=== PATIENT | female | born 1960 | race Native Hawaiian/Other Pacific Islander ===

== ENCOUNTER 2016-09-23 14:40 | Observation (INO) | payer OTHER ==
[2016-09-23] MEDS ORDERED: Enalaprilat 2.5 MG/2 ML IV ONE (15:18)
[2016-09-23] MEDS ORDERED: Enalaprilat 2.5 MG/2 ML ONE (15:25)
--- NOTE | 2016-09-23 15:45 | C.PDOC ---
History Of Present Illness Pt went to clinic today for a routine appointment and discovered that her BP is very high. She was then referred to the ED. Pt is asymptomatic. She has been diagnosed with hypertension in [facility] but is not on any medications and has not seen a doctor in more than a year. Time Seen by Provider: 09/23/16 15:01 Chief Complaint (Nursing): High Blood Pressure History Per: Patient, Family Onset/Duration Of Symptoms: Unknown Current Symptoms Are (Timing): Still Present Quality Of Symptoms: Asymptomatic Severity: Severe Exacerbating Factor(s): Pos: None Additional History Per: Prior Records Past Medical History Reviewed: Historical Data, Nursing Documentation, Vital Signs Vital Signs: Last Vital Signs Temp 98.2 F 09/23/16 14:58 Pulse 98 H 09/23/16 19:53 Resp 23 09/23/16 19:53 BP 203/100 H 09/23/16 19:53 Pulse Ox 99 09/23/16 19:53 - Medical History PMH: HTN Surgical History: Family History: States: Unknown Family Hx - Social History Hx Tobacco Use: No Hx Alcohol Use: No Hx Substance Use: No Review Of Systems Except As Marked, All Systems Reviewed And Found Negative. Constitutional: Negative for: Fever, Weakness Eyes: Negative for: Vision Change Cardiovascular: Negative for: Chest Pain Respiratory: Negative for: Shortness of Breath Gastrointestinal: Negative for: Vomiting, Abdominal Pain Musculoskeletal: Negative for: Neck Pain, Back Pain Skin: Negative for: Rash Neurological: Negative for: Weakness, Numbness, Incoordination, Change in Speech , Confusion, Seizures, Altered Mental Status, Headache, Dizziness Physical Exam - Physical Exam Appears: Non-toxic, No Acute Distress Skin: Normal Color, Warm, Dry, No Rash Head: Atraumatic, Normacephalic Eye(s): bilateral: PERRL, EOMI Neck: Normal ROM, Supple Cardiovascular: Rhythm Regular Respiratory: Normal Breath Sounds, No Accessory Muscle Use Gastrointestinal/Abdominal: Soft, No Tenderness Back: No CVA Tenderness Extremity: Normal ROM, No Pedal Edema, No Calf Tenderness Neurological/Psych: Oriented x3, Normal Speech, Normal Cognition, Normal Motor, Normal Sensation ED Course And Treatment - Laboratory Results Result Diagrams: 09/23/16 15:47 09/23/16 15:47 Interpretation Of Abnormal: Likely UTI. ECG: Interpreted By Me, Viewed By Me ECG Rhythm: Sinus Tachycardia, Nonspecific Changes Rate From EC O2 Sat by Pulse Oximetry: 100 Pulse Ox Interpretation: Normal Progress - Interventions Interventions:: Observation - Medications Administered Oral: Antihypertensive, Diuretic Intravenous: Antihypertensive - Data Reviewed Data Reviewed: Lab, EKG, Old records - Patient Status Patient status: Partially improved - Critical Care Citical Care: Excluding Proc Time Critical Care Time: 60 minutes - Continuity of Care Discussed patient case with:: Patient, Family-HIPPA compliant, ED Nurse, On- call PMD-pt unassigned Disposition Discussed With DrProsper: Kal Brewer Comment: He accepted pt on hospitalist service. Doctor Will See Patient In The: Hospital Counseled Patient/Family Regarding: Studies Performed, Diagnosis - Disposition Disposition: HOSPITALIZED Disposition Time: 20:27 Condition: GUARDED - Clinical Impression Clinical Impression: Hypertensive urgency
[2016-09-23 15:57] LABS: BASO # 0.1 K/uL (0.0-0.2); BASO % 0.7 % (0.0-2.0); EOS # 0.1 K/uL (0.0-0.7); EOS % 0.5 % (0.0-4.0); HEMATOCRIT 40.5 % (34.0-47.0); LYMPH # 2.7 K/uL (1.0-4.3); LYMPH % 23.2 % (20.0-40.0); MEAN CELL VOLUME 89.2 fL (81.0-99.0); MEAN CORPUSCULAR HEMOGLOBIN 29.5 pg (27.0-31.0); MEAN CORPUSCULAR HGB CONC 33.1 g/dL (33.0-37.0); MEAN PLATELET VOLUME 9.1 fL (7.2-11.7); MONO # 0.5 K/uL (0.0-0.8); MONO % 4.5 % (0.0-10.0); RED CELL DISTRIBUTION WIDTH 13.6 % (11.5-14.5); WHITE BLOOD COUNT 11.6 K/uL (4.8-10.8)
[2016-09-23 16:12] LABS: CHLORIDE 100 mmol/L (98-107); POTASSIUM 3.4 mmol/L (3.6-5.2); SODIUM 141 mmol/L (132-148)
[2016-09-23 16:14] LABS: BILIRUBIN,TOTAL 0.5 mg/dL (0.2-1.3); GFR AFRICAN-AMERICAN > 60
[2016-09-23 16:15] LABS: ALB/GLOB RATIO 1.1 (1.0-2.1); ALKALINE PHOSPHATASE 98 U/L (38-126); ALT/SGPT 26 U/L (9-52); AST/SGOT 26 U/L (14-36); BLOOD UREA NITROGEN 9 mg/dL (7-17); CALCIUM 9.2 mg/dl (8.6-10.4); CARBON DIOXIDE 25 mmol/L (22-30); GLUCOSE,RANDOM 98 mg/dL (65-105); TOTAL PROTEIN 8.2 g/dL (6.3-8.3)
[2016-09-23 16:16] LABS: MAGNESIUM 1.8 mg/dL (1.6-2.3)
[2016-09-23 16:34] LABS: RBC URINE 4 /hpf (0-3); URINE BACTERIA OCC (<OCC); URINE BILIRUBIN NEGATIVE (NEGATIVE); URINE BLOOD NEGATIVE (NEGATIVE); URINE COLOR Yellow (YELLOW); URINE GLUCOSE (UA) NORMAL (Normal); URINE KETONE NEGATIVE (NEGATIVE); URINE LEUKOCYTE ESTERASE 2+ Leu/uL (Negative); URINE PROTEIN NEGATIVE (NEGATIVE); URINE UROBILINOGEN NORMAL mg/dL (0.2-1.0); WBC URINE 24 /hpf (0-5)
[2016-09-23] MEDS ORDERED: Potassium Chloride 20 mEq/15 ml LIQ UD PO STA (16:47)
[2016-09-23] MEDS ORDERED: Potassium Chloride 20 mEq/15 ml LIQ UD ONE (17:10)
--- NOTE | 2016-09-23 20:49 | CP.PCM.HP ---
Addendum entered and electronically signed by Greg Nunes DO 09/24/16 00:14: Note: Coreg changed to 6.25mg PO BID for HTN. Original Note: <Greg Nunes - Last Filed: 09/23/16 23:56> History of Present Illness - History of Present Illness History of Present Illness: CC: I have a cyst near my vagina; HTN (asymptomatic) HPI: Patient is a 56 year old Afro[place] woman with a past medical history of hypertension, labial cysts - who was sent to the ED from the [facility] [address] [facility], due to asymptomatic elevated BP (196/98). Per conversation with daughter, home BP measurements are performed, and have been in the 200/100 range for several months. She was prescribed unknown BP medications in her home country [facility], but could not afford them. She has not seen a doctor in over 1 year. Patient reports making todays clinic appointment to have a vaginal cyst examined. She first noted the cyst (abscess) 8 months ago. At that time, she describes it as painful and non-draining. A month and a half ago, the lesion became enlarged, expressing purulent/partially sanguinous exudate with applied pressure. The pain is typically a 2/10, but is exacerbated by periods of prolonged sitting, rising to a 5/10. She has not taken anything for the pain. Patient also reports itching/dryness in the skin of the inner thigh/groin area for the past 1 month, with a prior occurrence 2yrs ago that self resolved. Similar unresolved itching/ dryness is noted at the scalp over the past 2years. Additional itching/dryness of the b/l palms, b/l soles and abdominal fold began and have persisted for the past 6 months. She has applied vaseline and rubbing alcohol to the affected areas for several weeks without relief. Patient denies f/c, dizziness, chest pain, SOB, abdominal pain, n/v, d/c, urinary symptoms, LE swelling, or any additional acute complaints. ED course: BP 230/99 on admission --> Labetalol 200mg PO; Enalapril 2.5mg IVP; HCTZ 25mg PO --> BP dec to 196/98 PMHx: HTN, Hx of Palpitations, Labial Cyst PSHx: , Hysterectomy 2012, Cataracts R 2010 Meds: None Allergies: NKDA FamHx: Mom HTN, Palpitations, of stroke; Dad of prostate CA. SocHx: Not sexually active for 2yrs; Tobacco 2ppd x10yrs; ETOH 1 beer every 3 months; denies drug use; lives in home with family. Works in sales. PMD: [facility] Review of Systems: -Gen: denies fever, chills, headache, lethargy, weakness. -HEENT: denies headache, dizziness, change in vision, change in hearing, sore throat, dysphagia, congestion. -Cardio: denies chest pain palpitations, lower extremity edema, orthopnea. -Resp: denies cough, dyspnea, hemoptysis, wheezing, pain on inspiration, congestion, mucous. -GI: pt denies abdominal pain, nausea/vomiting, diarrhea/constipation, hematochezia. -: (+) R labial mass. pt denies dysuria, urinary freq, incontinence, hematuria , change in urinary stream. -MSK: denies back pain, muscle weakness, radiating pain. -Skin: (+) itching / rash as per HPI. -Neuro: denies confusion, numbness, tingling, focal weakness, radicular pain, syncope. -Psych: denies anxiety, depression, H/I, S/I, hallucinations. Present on Admission - Present on Admission Any Indicators Present on Admission: No Past Patient History - Past Social History Smoking Status: Former Smoker - CARDIAC Hx Hypertension: Yes - PSYCHIATRIC Hx Substance Use: No - SURGICAL HISTORY Hx Section: Yes Hx Hysterectomy: Yes - ANESTHESIA Hx Anesthesia: Yes Hx Anesthesia Reactions: No Meds Allergies/Adverse Reactions: Allergies Allergy/AdvReac Type Severity Reaction Status Date / Time No Known Allergies Allergy Verified 09/23/16 15:00 Physical Exam - Constitutional Appears: Non-toxic, No Acute Distress - Head Exam Head Exam: ATRAUMATIC, NORMAL INSPECTION, NORMOCEPHALIC - Eye Exam Eye Exam: EOMI, Normal appearance, PERRL - ENT Exam ENT Exam: Mucous Membranes Moist - Respiratory Exam Respiratory Exam: Clear to Auscultation Bilateral, NORMAL BREATHING PATTERN. absent: Rhonchi, Wheezes - Cardiovascular Exam Cardiovascular Exam: Tachycardia, REGULAR RHYTHM, +S1, +S2. absent: Diastolic murmur - GI/Abdominal Exam GI & Abdominal Exam: Normal Bowel Sounds. absent: Tenderness - Exam Exam: absent: NORMAL INSPECTION (grayish/white vaginal discharge) External exam: Ecchymosis, Erythema, Lesions (R labial mass, 1.5x1.5cm) Bimanual exam: NORMAL BIMANUAL EXAM. absent: Adenexal Mass, Cervical Motion Tendernes - Extremities Exam Extremities exam: Positive for: normal capillary refill, pedal pulses present. Negative for: normal inspection, pedal edema, tenderness - Back Exam Back exam: NORMAL INSPECTION. absent: rash noted - Neurological Exam Neurological exam: Alert, CN II-XII Intact, Oriented x3 - Psychiatric Exam Psychiatric exam: Normal Affect, Normal Mood - Skin Skin Exam: Dry, Intact, Rash, Warm Additional comments: - Rash / dry skin of inner thigh/groin, b/l palms, b/l soles, abdominal fold, and scalp Results - Vital Signs Recent Vital Signs: Last Vital Signs Temp 98.2 F 09/23/16 14:58 Pulse 98 H 09/23/16 19:53 Resp 23 09/23/16 19:53 BP 203/100 H 09/23/16 19:53 Pulse Ox 100 09/23/16 20:28 - Labs Result Diagrams: 09/23/16 15:47 09/23/16 15:47 Labs: Laboratory Results - last 24 hr 09/23/16 09/23/16 09/23/16 15:47 15:47 15:47 WBC 11.6 H RBC 4.53 Hgb 13.4 Hct 40.5 MCV 89.2 MCH 29.5 MCHC 33.1 RDW 13.6 Plt Count 224 MPV 9.1 Neut % (Auto) 71.1 Lymph % (Auto) 23.2 [place] % (Auto) 4.5 Eos % (Auto) 0.5 Baso % (Auto) 0.7 Neut # 8.3 H Lymph # 2.7 [place] # 0.5 Eos # 0.1 Baso # 0.1 Sodium 141 Potassium 3.4 L Chloride 100 Carbon Dioxide 25 Anion Gap 20 BUN 9 Creatinine 0.7 Est GFR ( Amer) > 60 Est GFR (Non-Af Amer) > 60 Random Glucose 98 Calcium 9.2 Magnesium 1.8 Total Bilirubin 0.5 AST 26 ALT 26 Alkaline Phosphatase 98 Total Protein 8.2 Albumin 4.4 Globulin 3.9 Albumin/Globulin Ratio 1.1 Urine Color Yellow Urine Clarity Clear Urine pH 6.0 Ur Specific [place] 1.010 Urine Protein Negative Urine Glucose (UA) Normal Urine Ketones Negative Urine Blood Negative Urine Nitrate Positive H Urine Bilirubin Negative Urine Urobilinogen Normal Ur Leukocyte Esterase 2+ H Urine WBC (Auto) 24 H Urine RBC (Auto) 4 H Ur Squamous Epith Cells 1 Urine Bacteria Occ H Assessment & Plan - Assessment and Plan (Free Text) Assessment: Hypertensive urgency * BP in ED 230/99 on admission --> BP dec to 196/98 * ED course: Labetalol 200mg PO; Enalapril 2.5mg IVP; HCTZ 25mg PO * Start Enalapril 5mg PO qd; Coreg 6.25mg PO qd * Xanax 0.25mg PO once * monitor * f/u labs, A1c, TSH, Free T4, lipids Dermatomycosis * possible Tinea cruris at b/l palms, soles of feet, medial thighs near groin, abdominal fold, scalp * Diflucan 150mg PO Q7D x 6wks (started 09/23) * monitor Vaginal Discharge * Consider bacterial vaginosis, grayish/white discharge * f/u vaginal discharge pH * If pH < 4.5, consider Metronidazol Labial mass * ObGyn consult, Dr. Travis, f/u recs * monitor Positive Urinalysis * Possibly contaminated by vaginal discharge * +Nitrate, +leuk est, WBC 24, occult bacteria * f/u straight cath * ED - one dose Cipro 500mg PO Electrolyte Imbalance * Hypokalemia, K 3.4 -> KCl 20, f/u Prophylaxis * SCDs * Pepcid * Heparin 5k SC q8H - Date & Time Date: 09/23/16 Time: 20:50 <Kal Brewer P - Last Filed: 09/24/16 06:27> Results - Vital Signs Recent Vital Signs: Last Vital Signs Temp 98.5 F 09/23/16 23:40 Pulse 87 09/23/16 23:40 Resp 20 09/23/16 23:40 BP 164/88 H 09/23/16 23:40 Pulse Ox 98 09/23/16 23:40 - Labs Result Diagrams: 09/23/16 15:47 09/23/16 15:47 Labs: Laboratory Results - last 24 hr 09/23/16 22:59 POC Glucose (mg/dL) 137 H Attending/Attestation - Attestation I have personally seen and examined this patient.: Yes I have fully participated in the care of the patient.: Yes I have reviewed all pertinent clinical information: Yes Notes (Text): Assessment * Uncontrolled BP probably essential htn worsened with anxiety, patient is asymptomatic * Right vulval lesion s/p spontaneous drainage, will need postal clerk eval and biopsy * Abnormal urine likely contaminated from the patients vaginal discharge, patient differed straight cath * Dermatophytes in vulval area, groin, abd scar, both palms and soles Plan * Started Coreg and enalpril will need outpt further f/u * Mechanical Meter Tester eval for likely biopsy * Diflucan * See orders for detail.
[2016-09-24 06:56] LABS: ALB/GLOB RATIO 1.4 (1.0-2.1); ALKALINE PHOSPHATASE 81 U/L (38-126); ALT/SGPT 24 U/L (9-52); AST/SGOT 39 U/L (14-36); BILIRUBIN,TOTAL 0.3 mg/dL (0.2-1.3); BLOOD UREA NITROGEN 14 mg/dL (7-17); CALCIUM 9.1 mg/dl (8.6-10.4); CARBON DIOXIDE 27 mmol/L (22-30); CHLORIDE 99 mmol/L (98-107); CHOLESTEROL 190 mg/dL (0-199); GFR AFRICAN-AMERICAN > 60; GLUCOSE,RANDOM 90 mg/dL (65-105); MAGNESIUM 2.2 mg/dL (1.6-2.3); PHOSPHOROUS 5.1 mg/dL (2.5-4.5); POTASSIUM 3.6 mmol/L (3.6-5.2); SODIUM 141 mmol/L (132-148); TOTAL PROTEIN 6.9 g/dL (6.3-8.3)
[2016-09-24 07:15] LABS: BASO % 0.5 % (0.0-2.0); EOS # 0.1 K/uL (0.0-0.7); EOS % 0.7 % (0.0-4.0); HEMATOCRIT 40.3 % (34.0-47.0); LYMPH # 2.8 K/uL (1.0-4.3); LYMPH % 31.2 % (20.0-40.0); MEAN CELL VOLUME 88.9 fL (81.0-99.0); MEAN CORPUSCULAR HEMOGLOBIN 29.6 pg (27.0-31.0); MEAN CORPUSCULAR HGB CONC 33.3 g/dL (33.0-37.0); MEAN PLATELET VOLUME 9.2 fL (7.2-11.7); MONO # 0.5 K/uL (0.0-0.8); MONO % 5.6 % (0.0-10.0); NRBC % 0.1 % (0.0-2.0); RED CELL DISTRIBUTION WIDTH 13.8 % (11.5-14.5); WHITE BLOOD COUNT 9.1 K/uL (4.8-10.8)
[2016-09-24 07:27] LABS: THYROID STIMULATING HORMONE 3.48 mIU/L (0.46-4.68)
[2016-09-24 07:32] LABS: RBC URINE 5 /hpf (0-3); URINE BACTERIA FEW (<OCC); URINE BILIRUBIN NEGATIVE (NEGATIVE); URINE BLOOD NEGATIVE (NEGATIVE); URINE COLOR Yellow (YELLOW); URINE GLUCOSE (UA) NORMAL (Normal); URINE KETONE NEGATIVE (NEGATIVE); URINE LEUKOCYTE ESTERASE 3+ Leu/uL (Negative); URINE PROTEIN NEGATIVE (NEGATIVE); URINE UROBILINOGEN NORMAL mg/dL (0.2-1.0); WBC URINE 19 /hpf (0-5)
--- NOTE | 2016-09-24 10:19 | CP.PCM.CON ---
Past Patient History - Past Medical History & Family History Past Medical History?: Yes - Past Social History Smoking Status: Former Smoker - CARDIAC Hx Hypertension: Yes - PULMONARY Hx Respiratory Disorders: No - HEENT Hx HEENT Problems: Yes Hx Cataracts: Yes (surgery done) - RENAL Hx Chronic Kidney Disease: No - ENDOCRINE/METABOLIC Hx Endocrine Disorders: No - HEMATOLOGICAL/ONCOLOGICAL Hx Blood Disorders: No - INTEGUMENTARY Hx Dermatological Problems: No - MUSCULOSKELETAL/RHEUMATOLOGICAL Hx Musculoskeletal Disorders: No - GASTROINTESTINAL Hx Gastrointestinal Disorders: No - GENITOURINARY/GYNECOLOGICAL Hx Genitourinary Disorders: No - PSYCHIATRIC Hx Substance Use: No - SURGICAL HISTORY Hx Section: Yes Hx Hysterectomy: Yes - ANESTHESIA Hx Anesthesia: Yes Hx Anesthesia Reactions: No Meds Allergies/Adverse Reactions: Allergies Allergy/AdvReac Type Severity Reaction Status Date / Time No Known Allergies Allergy Verified 09/23/16 15:00 - Medications Medications: Current Medications Carvedilol (Coreg) 3.125 mg PO BID [facility] Enalapril Maleate (Vasotec) 5 mg PO DAILY [facility] Famotidine (Pepcid) 40 mg PO DAILY [facility] Fluconazole (Diflucan) 200 mg PO Q7D [facility] Stop: 10/28/16 21:46 Heparin Sodium (Porcine) (Heparin) 5,000 units SC Q8 [facility] Last Admin: 09/24/16 06:41 Dose: 5,000 units Pneumococcal Polyvalent Vaccine (Pneumovax 23 Vaccine) 0.5 ml IM .ONCE ONE Stop: 09/25/16 10:01 Results - Vital Signs Recent Vital Signs: Last Vital Signs Temp 98.1 F 09/24/16 07:15 Pulse 71 09/24/16 07:15 Resp 20 09/24/16 07:15 BP 159/80 H 09/24/16 07:15 Pulse Ox 99 09/24/16 07:15 - Labs Result Diagrams: 09/24/16 06:36 09/24/16 06:36 Labs: Laboratory Results - last 24 hr 09/23/16 09/24/16 09/24/16 22:59 06:36 06:36 WBC 9.1 RBC 4.53 Hgb 13.4 Hct 40.3 MCV 88.9 MCH 29.6 MCHC 33.3 RDW 13.8 Plt Count 202 MPV 9.2 Neut % (Auto) 62.0 Lymph % (Auto) 31.2 [place] % (Auto) 5.6 Eos % (Auto) 0.7 Baso % (Auto) 0.5 Neut # 5.6 Lymph # 2.8 [place] # 0.5 Eos # 0.1 Baso # 0.0 APTT Sodium 141 Potassium 3.6 Chloride 99 Carbon Dioxide 27 Anion Gap 19 BUN 14 Creatinine 0.8 Est GFR ( Amer) > 60 Est GFR (Non-Af Amer) > 60 POC Glucose (mg/dL) 137 H Random Glucose 90 Hemoglobin A1c Calcium 9.1 Phosphorus 5.1 H Magnesium 2.2 Total Bilirubin 0.3 AST 39 H D ALT 24 Alkaline Phosphatase 81 Total Protein 6.9 Albumin 4.0 Globulin 2.9 Albumin/Globulin Ratio 1.4 Triglycerides 88 Cholesterol 190 LDL Cholesterol Direct 141 H HDL Cholesterol 30 Free T4 TSH 3rd Generation 3.48 Urine Color Urine Clarity Urine pH Ur Specific [place] Urine Protein Urine Glucose (UA) Urine Ketones Urine Blood Urine Nitrate Urine Bilirubin Urine Urobilinogen Ur Leukocyte Esterase Urine WBC (Auto) Urine RBC (Auto) Ur Squamous Epith Cells Urine Bacteria 09/24/16 09/24/16 09/24/16 06:36 06:36 06:36 WBC RBC Hgb Hct MCV MCH MCHC RDW Plt Count MPV Neut % (Auto) Lymph % (Auto) [place] % (Auto) Eos % (Auto) Baso % (Auto) Neut # Lymph # [place] # Eos # Baso # APTT 33 Sodium Potassium Chloride Carbon Dioxide Anion Gap BUN Creatinine Est GFR ( Amer) Est GFR (Non-Af Amer) POC Glucose (mg/dL) Random Glucose Hemoglobin A1c 6.4 Calcium Phosphorus Magnesium Total Bilirubin AST ALT Alkaline Phosphatase Total Protein Albumin Globulin Albumin/Globulin Ratio Triglycerides Cholesterol LDL Cholesterol Direct HDL Cholesterol Free T4 1.23 TSH 3rd Generation Urine Color Urine Clarity Urine pH Ur Specific [place] Urine Protein Urine Glucose (UA) Urine Ketones Urine Blood Urine Nitrate Urine Bilirubin Urine Urobilinogen Ur Leukocyte Esterase Urine WBC (Auto) Urine RBC (Auto) Ur Squamous Epith Cells Urine Bacteria 09/24/16 07:14 WBC RBC Hgb Hct MCV MCH MCHC RDW Plt Count MPV Neut % (Auto) Lymph % (Auto) [place] % (Auto) Eos % (Auto) Baso % (Auto) Neut # Lymph # [place] # Eos # Baso # APTT Sodium Potassium Chloride Carbon Dioxide Anion Gap BUN Creatinine Est GFR ( Amer) Est GFR (Non-Af Amer) POC Glucose (mg/dL) Random Glucose Hemoglobin A1c Calcium Phosphorus Magnesium Total Bilirubin AST ALT Alkaline Phosphatase Total Protein Albumin Globulin Albumin/Globulin Ratio Triglycerides Cholesterol LDL Cholesterol Direct HDL Cholesterol Free T4 TSH 3rd Generation Urine Color Yellow Urine Clarity Hazy Urine pH 5.0 Ur Specific [place] 1.016 Urine Protein Negative Urine Glucose (UA) Normal Urine Ketones Negative Urine Blood Negative Urine Nitrate Positive H Urine Bilirubin Negative Urine Urobilinogen Normal Ur Leukocyte Esterase 3+ H Urine WBC (Auto) 19 H Urine RBC (Auto) 5 H Ur Squamous Epith Cells 9 H Urine Bacteria Few H Assessment & Plan - Assessment and Plan (Free Text) Assessment: Case reviewed Hypertensive urgency; no obvious secondary etiology Plan: Renal dopplers Echocardiogram
[2016-09-24] MEDS ORDERED: Clotrimazole 1% Cream(30 gm) TOP SCH ×2 (12:00→13:00)
--- NOTE | 2016-09-24 13:09 | CP.PCM.CON ---
<Korina Santacruz - Last Filed: 09/24/16 15:01> History of Present Illness - History of Present Illness History of Present Illness: CC: "I have a problem, vaginal issue" Patient is a 56 yo [place] female who presented to the hospital from the clinic with elevated BPs. While in the neighborhood clinic yesterday, BP was noted to be 196/98, so she was subsequently sent to the ED for evaluation. Patient complaining of a vaginal cyst that has been present for the past year. Patient reports that the cyst has gotten bigger within the last 4 months and states that it was very painful. She states that she never had this before. Patient reports that two weeks ago, she applied vaseline and pressure to the cyst and noticed pus coming out. Since the drainage of the cyst, patient reports that the pain has improved. Only has pain when wiping. Patient also reports having itching in the lower abdominal area. Denies headache, dizziness, fevers, chills, CP, SOB, abdominal pain, N/V, urinary symptoms, vaginal bleeding , vaginal discharge. OB Hx: G1: 1989 at term, no complications G2: 1993 at term, no complications G3: EAB G4: EAB [employer] Hx: LMP: 2012 Menarche: age 13 Hx of fibroid uterus, denies hx of cysts Denies Hx of STDs Last sexual encounter was > 2 years ago Allergies: NKDA Medications: denies Medical Hx: HTN Surgical Hx: Hysterectomy in 2012, R cataract surgery, C section x 1 Social Hx: Smoked 2ppd for 12 years, quit smoking in 2013; social drinker; denies drug use; currently unemployed Family Hx: Mom - HTN, at age 63 from stroke; Dad from Prostate cancer PMD: [facility] at [id number] used for interpretation Review of Systems - Review of Systems All systems: reviewed and no additional remarkable complaints except - EENT Eyes: absent: Change in Vision Ears: absent: Abnormal Hearing - Cardiovascular Cardiovascular: absent: Chest Pain, Dyspnea, Lightheadedness, Palpitations, Paroxysmal Nocturnal Dyspnea - Respiratory Respiratory: absent: Cough, Dyspnea, Wheezing - Gastrointestinal Gastrointestinal: absent: Abdominal Pain, Change in Bowel Habits, Constipation, Diarrhea, Nausea, Vomiting - Genitourinary Genitourinary: absent: Change in Urinary Stream, Dysuria, Hematuria, Urinary Frequency - Reproductive: Female Reproductive:Female: S/P Hysterectomy, Post Menopausal, Genital Lesions, Genital Pruritis. absent: Abnormal Vaginal Bleeding, Pelvic Pain, Sexual Dysfunction - Menstruation Menstruation: S/P Hysterectomy, Post Menopausal. absent: Abnormal Vaginal Bleeding - Musculoskeletal Musculoskeletal: absent: Abnormal Gait, Back Pain, Myalgias - Neurological Neurological: absent: Dizziness, Headaches, Weakness - Psychiatric Psychiatric: absent: Anxiety, Behavioral Changes, Depression Past Patient History - Past Medical History & Family History Past Medical History?: Yes - Past Social History Smoking Status: Former Smoker Occupation: Unemployed Alcohol: Social Drugs: Denies Home Situation {Lives}: With Family - CARDIAC Hx Hypertension: Yes - PULMONARY Hx Respiratory Disorders: No - HEENT Hx HEENT Problems: Yes Hx Cataracts: Yes (surgery done) - RENAL Hx Chronic Kidney Disease: No - ENDOCRINE/METABOLIC Hx Endocrine Disorders: No - HEMATOLOGICAL/ONCOLOGICAL Hx Blood Disorders: No - INTEGUMENTARY Hx Dermatological Problems: No - MUSCULOSKELETAL/RHEUMATOLOGICAL Hx Musculoskeletal Disorders: No - GASTROINTESTINAL Hx Gastrointestinal Disorders: No - GENITOURINARY/GYNECOLOGICAL Hx Genitourinary Disorders: No - PSYCHIATRIC Hx Substance Use: No - SURGICAL HISTORY Hx Section: Yes Hx Hysterectomy: Yes - ANESTHESIA Hx Anesthesia: Yes Hx Anesthesia Reactions: No Meds Home Medications: Home Medication List Medication Instructions Recorded Confirmed Type Carvedilol [Coreg] 3.125 mg PO BID #30 tab 09/24/16 Rx Ciprofloxacin [Cipro] 500 mg PO DAILY #1 tab 09/24/16 Rx Clotrimazole 1% Cream [Lotrimin 1%] 60 gm TOP BID #1 09/24/16 Rx Enalapril Maleate [Vasotec] 5 mg PO DAILY #15 tab 09/24/16 Rx Fluconazole [Diflucan] 200 mg PO Q7D #6 tab 09/24/16 Rx Rosuvastatin Calcium 2.5 [Crestor] 5 mg PO DAILY #15 tab 09/24/16 Rx Allergies/Adverse Reactions: Allergies Allergy/AdvReac Type Severity Reaction Status Date / Time No Known Allergies Allergy Verified 09/23/16 15:00 - Medications Medications: Current Medications Carvedilol (Coreg) 3.125 mg PO BID [facility] Last Admin: 09/24/16 12:07 Dose: 3.125 mg Ciprofloxacin (Cipro) 500 mg PO DAILY [facility] Last Admin: 09/24/16 12:13 Dose: 500 mg Clotrimazole (Lotrimin 1%) 0 gm TOP BID [facility] Enalapril Maleate (Vasotec) 5 mg PO DAILY [facility] Last Admin: 09/24/16 12:07 Dose: 5 mg Famotidine (Pepcid) 40 mg PO DAILY [facility] Last Admin: 09/24/16 12:07 Dose: 40 mg Fluconazole (Diflucan) 200 mg PO Q7D [facility] Stop: 10/28/16 21:46 Heparin Sodium (Porcine) (Heparin) 5,000 units SC Q8 [facility] Last Admin: 09/24/16 06:41 Dose: 5,000 units Pneumococcal Polyvalent Vaccine (Pneumovax 23 Vaccine) 0.5 ml IM .ONCE ONE Stop: 09/25/16 10:01 Physical Exam - Constitutional Appears: Well, Non-toxic - Head Exam Head Exam: ATRAUMATIC, NORMAL INSPECTION - Eye Exam Eye Exam: EOMI, Normal appearance Pupil Exam: NORMAL ACCOMODATION - ENT Exam ENT Exam: Mucous Membranes Moist - Neck Exam Neck exam: Positive for: Normal Inspection - Respiratory Exam Respiratory Exam: Clear to Auscultation Bilateral, NORMAL BREATHING PATTERN - Cardiovascular Exam Cardiovascular Exam: REGULAR RHYTHM, +S1, +S2. absent: Tachycardia - GI/Abdominal Exam GI & Abdominal Exam: Normal Bowel Sounds, Soft. absent: Rebound, Rigid, Tenderness Additional comments: Lower abdomen - Exam External exam: Lesions Bimanual exam: NORMAL BIMANUAL EXAM Additional comments: Right vulvar lesion: [id number], non-erythematous, irregular in shape/border, no drainage noted Vaginal mucosa pink, no lesions, no vaginal discharge noted, no cervix visualized, s/p hysterectomy, no adnexal tenderness - Extremities Exam Extremities exam: Positive for: normal inspection, pedal pulses present - Neurological Exam Neurological exam: Alert, CN II-XII Intact, Oriented x3 - Skin Skin Exam: Dry, Warm Additional comments: Skin changes on abdominal fold and intertriginous areas in the grown region consistent with ehsan Results - Vital Signs Recent Vital Signs: Last Vital Signs Temp 98.1 F 09/24/16 07:15 Pulse 71 09/24/16 07:15 Resp 20 09/24/16 07:15 BP 174/89 H 09/24/16 12:15 Pulse Ox 99 09/24/16 07:15 - Labs Result Diagrams: 09/24/16 06:36 09/24/16 06:36 Labs: Laboratory Results - last 24 hr 09/23/16 09/24/16 09/24/16 22:59 06:36 06:36 WBC 9.1 RBC 4.53 Hgb 13.4 Hct 40.3 MCV 88.9 MCH 29.6 MCHC 33.3 RDW 13.8 Plt Count 202 MPV 9.2 Neut % (Auto) 62.0 Lymph % (Auto) 31.2 [place] % (Auto) 5.6 Eos % (Auto) 0.7 Baso % (Auto) 0.5 Neut # 5.6 Lymph # 2.8 [place] # 0.5 Eos # 0.1 Baso # 0.0 APTT Sodium 141 Potassium 3.6 Chloride 99 Carbon Dioxide 27 Anion Gap 19 BUN 14 Creatinine 0.8 Est GFR ( Amer) > 60 Est GFR (Non-Af Amer) > 60 POC Glucose (mg/dL) 137 H Random Glucose 90 Hemoglobin A1c Calcium 9.1 Phosphorus 5.1 H Magnesium 2.2 Total Bilirubin 0.3 AST 39 H D ALT 24 Alkaline Phosphatase 81 Total Protein 6.9 Albumin 4.0 Globulin 2.9 Albumin/Globulin Ratio 1.4 Triglycerides 88 Cholesterol 190 LDL Cholesterol Direct 141 H HDL Cholesterol 30 Free T4 TSH 3rd Generation 3.48 Urine Color Urine Clarity Urine pH Ur Specific [place] Urine Protein Urine Glucose (UA) Urine Ketones Urine Blood Urine Nitrate Urine Bilirubin Urine Urobilinogen Ur Leukocyte Esterase Urine WBC (Auto) Urine RBC (Auto) Ur Squamous Epith Cells Urine Bacteria 09/24/16 09/24/16 09/24/16 06:36 06:36 06:36 WBC RBC Hgb Hct MCV MCH MCHC RDW Plt Count MPV Neut % (Auto) Lymph % (Auto) [place] % (Auto) Eos % (Auto) Baso % (Auto) Neut # Lymph # [place] # Eos # Baso # APTT 33 Sodium Potassium Chloride Carbon Dioxide Anion Gap BUN Creatinine Est GFR ( Amer) Est GFR (Non-Af Amer) POC Glucose (mg/dL) Random Glucose Hemoglobin A1c 6.4 Calcium Phosphorus Magnesium Total Bilirubin AST ALT Alkaline Phosphatase Total Protein Albumin Globulin Albumin/Globulin Ratio Triglycerides Cholesterol LDL Cholesterol Direct HDL Cholesterol Free T4 1.23 TSH 3rd Generation Urine Color Urine Clarity Urine pH Ur Specific [place] Urine Protein Urine Glucose (UA) Urine Ketones Urine Blood Urine Nitrate Urine Bilirubin Urine Urobilinogen Ur Leukocyte Esterase Urine WBC (Auto) Urine RBC (Auto) Ur Squamous Epith Cells Urine Bacteria 09/24/16 09/24/16 07:14 11:30 WBC RBC Hgb Hct MCV MCH MCHC RDW Plt Count MPV Neut % (Auto) Lymph % (Auto) [place] % (Auto) Eos % (Auto) Baso % (Auto) Neut # Lymph # [place] # Eos # Baso # APTT Sodium Potassium Chloride Carbon Dioxide Anion Gap BUN Creatinine Est GFR ( Amer) Est GFR (Non-Af Amer) POC Glucose (mg/dL) 95 Random Glucose Hemoglobin A1c Calcium Phosphorus Magnesium Total Bilirubin AST ALT Alkaline Phosphatase Total Protein Albumin Globulin Albumin/Globulin Ratio Triglycerides Cholesterol LDL Cholesterol Direct HDL Cholesterol Free T4 TSH 3rd Generation Urine Color Yellow Urine Clarity Hazy Urine pH 5.0 Ur Specific [place] 1.016 Urine Protein Negative Urine Glucose (UA) Normal Urine Ketones Negative Urine Blood Negative Urine Nitrate Positive H Urine Bilirubin Negative Urine Urobilinogen Normal Ur Leukocyte Esterase 3+ H Urine WBC (Auto) 19 H Urine RBC (Auto) 5 H Ur Squamous Epith Cells 9 H Urine Bacteria Few H Assessment & Plan (1) Vulvar lesion Status: Chronic - Assessment and Plan (Free Text) Assessment: 56 yo F with PMHx of HTN presents with R vulvar lesion Stable, afebrile Lesion possible papilloma, cannot rule out malignancy Will need biopsy of lesion upon discharge Discussed with patient the urgency for [employer] follow up, patient understands All questions and concerns addressed Medical management per primary team Plan d/w attending <Ksenia Rice - Last Filed: 09/24/16 15:37> Meds - Medications Medications: Current Medications Carvedilol (Coreg) 3.125 mg PO BID [facility] Ciprofloxacin (Cipro) 500 mg PO DAILY [facility] Last Admin: 09/24/16 12:13 Dose: 500 mg Clotrimazole (Lotrimin 1%) 0 gm TOP BID [facility] Last Admin: 09/24/16 15:08 Dose: 1 applic Enalapril Maleate (Vasotec) 5 mg PO DAILY [facility] Last Admin: 09/24/16 12:07 Dose: 5 mg Famotidine (Pepcid) 40 mg PO DAILY [facility] Last Admin: 09/24/16 12:07 Dose: 40 mg Fluconazole (Diflucan) 200 mg PO Q7D [facility] Stop: 10/28/16 21:46 Heparin Sodium (Porcine) (Heparin) 5,000 units SC Q8 [facility] Last Admin: 09/24/16 15:16 Dose: 5,000 units Pneumococcal Polyvalent Vaccine (Pneumovax 23 Vaccine) 0.5 ml IM .ONCE ONE Stop: 09/25/16 10:01 Results - Vital Signs Recent Vital Signs: Last Vital Signs Temp 98.1 F 09/24/16 07:15 Pulse 90 09/24/16 14:33 Resp 20 09/24/16 07:15 BP 170/99 H 09/24/16 14:33 Pulse Ox 99 09/24/16 07:15 - Labs Result Diagrams: 09/24/16 06:36 09/24/16 06:36 Labs: Laboratory Results - last 24 hr 09/23/16 09/24/16 09/24/16 22:59 06:36 06:36 WBC 9.1 RBC 4.53 Hgb 13.4 Hct 40.3 MCV 88.9 MCH 29.6 MCHC 33.3 RDW 13.8 Plt Count 202 MPV 9.2 Neut % (Auto) 62.0 Lymph % (Auto) 31.2 [place] % (Auto) 5.6 Eos % (Auto) 0.7 Baso % (Auto) 0.5 Neut # 5.6 Lymph # 2.8 [place] # 0.5 Eos # 0.1 Baso # 0.0 APTT Sodium 141 Potassium 3.6 Chloride 99 Carbon Dioxide 27 Anion Gap 19 BUN 14 Creatinine 0.8 Est GFR ( Amer) > 60 Est GFR (Non-Af Amer) > 60 POC Glucose (mg/dL) 137 H Random Glucose 90 Hemoglobin A1c Calcium 9.1 Phosphorus 5.1 H Magnesium 2.2 Total Bilirubin 0.3 AST 39 H D ALT 24 Alkaline Phosphatase 81 Total Protein 6.9 Albumin 4.0 Globulin 2.9 Albumin/Globulin Ratio 1.4 Triglycerides 88 Cholesterol 190 LDL Cholesterol Direct 141 H HDL Cholesterol 30 Free T4 TSH 3rd Generation 3.48 Urine Color Urine Clarity Urine pH Ur Specific [place] Urine Protein Urine Glucose (UA) Urine Ketones Urine Blood Urine Nitrate Urine Bilirubin Urine Urobilinogen Ur Leukocyte Esterase Urine WBC (Auto) Urine RBC (Auto) Ur Squamous Epith Cells Urine Bacteria 09/24/16 09/24/16 09/24/16 06:36 06:36 06:36 WBC RBC Hgb Hct MCV MCH MCHC RDW Plt Count MPV Neut % (Auto) Lymph % (Auto) [place] % (Auto) Eos % (Auto) Baso % (Auto) Neut # Lymph # [place] # Eos # Baso # APTT 33 Sodium Potassium Chloride Carbon Dioxide Anion Gap BUN Creatinine Est GFR ( Amer) Est GFR (Non-Af Amer) POC Glucose (mg/dL) Random Glucose Hemoglobin A1c 6.4 Calcium Phosphorus Magnesium Total Bilirubin AST ALT Alkaline Phosphatase Total Protein Albumin Globulin Albumin/Globulin Ratio Triglycerides Cholesterol LDL Cholesterol Direct HDL Cholesterol Free T4 1.23 TSH 3rd Generation Urine Color Urine Clarity Urine pH Ur Specific [place] Urine Protein Urine Glucose (UA) Urine Ketones Urine Blood Urine Nitrate Urine Bilirubin Urine Urobilinogen Ur Leukocyte Esterase Urine WBC (Auto) Urine RBC (Auto) Ur Squamous Epith Cells Urine Bacteria 09/24/16 09/24/16 07:14 11:30 WBC RBC Hgb Hct MCV MCH MCHC RDW Plt Count MPV Neut % (Auto) Lymph % (Auto) [place] % (Auto) Eos % (Auto) Baso % (Auto) Neut # Lymph # [place] # Eos # Baso # APTT Sodium Potassium Chloride Carbon Dioxide Anion Gap BUN Creatinine Est GFR ( Amer) Est GFR (Non-Af Amer) POC Glucose (mg/dL) 95 Random Glucose Hemoglobin A1c Calcium Phosphorus Magnesium Total Bilirubin AST ALT Alkaline Phosphatase Total Protein Albumin Globulin Albumin/Globulin Ratio Triglycerides Cholesterol LDL Cholesterol Direct HDL Cholesterol Free T4 TSH 3rd Generation Urine Color Yellow Urine Clarity Hazy Urine pH 5.0 Ur Specific [place] 1.016 Urine Protein Negative Urine Glucose (UA) Normal Urine Ketones Negative Urine Blood Negative Urine Nitrate Positive H Urine Bilirubin Negative Urine Urobilinogen Normal Ur Leukocyte Esterase 3+ H Urine WBC (Auto) 19 H Urine RBC (Auto) 5 H Ur Squamous Epith Cells 9 H Urine Bacteria Few H Assessment & Plan (1) Vulvar lesion Status: Chronic Priority: Medium Onset Date: Unknown Comment: Needs biopsy as outpatient (2) Candidiasis Status: Chronic Priority: Low Onset Date: Unknown Comment: Topical anti-fungal - Assessment and Plan (Free Text) Plan: I agree with above. Of note, upon discharge, patient to follow up with gynecology division of the [facility], which convenes every Wednesday morning - Date & Time Date: 09/24/16 Time: 15:34 Attending/Attestation - Attestation I have personally seen and examined this patient.: Yes I have fully participated in the care of the patient.: Yes I have reviewed all pertinent clinical information: Yes Notes (Text): 09/24/16 15:29 Abdomen: healed Pfannenstiel scar in the area of the possible candidial changes. Bimanual examination was performed by me: I agree with the description of the right vulvar lesion. In addition, on bimanual examination, no adnexal masses were appreciated.
--- NOTE | 2016-09-24 15:36 | VASCLAB ---
PROCEDURE: HISTORY: L Carotid bruit COMPARISON: None available. TECHNIQUE: Grayscale and duplex Doppler evaluation of the cervical carotid and vertebral arteries were performed. The common carotid, carotid bifurcations and cervical Internal Carotid Artery (ICA) and proximal External Carotid Artery (ECA) were evaluated. The vertebral arteries were evaluated for gross patency and flow direction. Report prepared by Armando Pulido, BS, RVT FINDINGS: RIGHT CAROTID ARTERIES: 1. Common Carotid Artery: No significant focal plaque formation of the right common carotid artery. Maximum Peak Systolic velocity: 114 cm/sec: End-diastolic velocity 25 cm/sec. 2. Carotid Bifurcation: plaque formation. Maximum Peak Systolic velocity: 139 cm/sec: End-diastolic velocity 31 cm/sec. 3. Internal Carotid Artery: Moderate plaque formation of the right proximal ICA which does not results in hemodynamically significant stenosis. Plaque description: Calcific 3.1. Proximal Segment: Peak systolic velocity 111 cm/sec: End-diastolic velocity 27 cm/sec - % stenosis 0-15% 3.2. Middle Segment: Peak systolic velocity 125 cm/sec: End-diastolic velocity 29 cm/sec - % stenosis 0-15% 3.3. Distal Segment: Peak systolic velocity 125 cm/sec: End-diastolic velocity 39 cm/sec - % stenosis 0-15% 4. External Carotid Artery: No significant focal plaque formation. Peak systolic velocity 119 cm/sec 5. ICA/CCA Ratio: 1.2 LEFT CAROTID ARTERIES: 1. Common Carotid Artery: No significant focal plaque formation of the left common carotid artery. Maximum Peak Systolic velocity: 108 cm/sec: End-diastolic velocity 19 cm/sec. 2. Carotid Bifurcation: plaque formation. Maximum Peak Systolic velocity: 90 cm/sec: End-diastolic velocity 17 cm/sec. 3. Internal Carotid Artery: Severe plaque formation of the left proximal ICA which does not results in a hemodynamically significant stenosis. Plaque description: Calcific 3.1. Proximal Segment: Peak systolic velocity 117 cm/sec: End-diastolic velocity 31 cm/sec - % stenosis 0-15% 3.2. Middle Segment: Peak systolic velocity 148 cm/sec: End-diastolic velocity 40 cm/sec - % stenosis 16-49% 3.3. Distal Segment: Peak systolic velocity 94 cm/sec: End-diastolic velocity 30 cm/sec - % stenosis 0-15% 4. External Carotid Artery: No significant focal plaque formation. Peak systolic velocity 135 cm/sec 5. ICA/CCA Ratio: 1.4 VERTEBRAL ARTERIES: 1. Right Vertebral Artery: The right vertebral artery flow direction is antegrade. 2. Left Vertebral Artery: The left vertebral artery flow direction is antegrade. OTHER FINDINGS: 1. Right Brachial Blood pressure: 210 mmHg. 2. Left Brachial Blood pressure: 208 mmHg. IMPRESSION: RIGHT: Duplex scan does not suggest hemodynamically significant stenosis of the right extracranial carotid arteries. LEFT: 16-49% stenosis of the left mid ICA with minimal hemodynamic significance.
--- NOTE | 2016-09-24 15:37 | VASCLAB ---
PROCEDURE: Ultrasonography renal arterial evaluation HISTORY: HTN - 240/120 COMPARISON: None available. TECHNIQUE: Real-time ultrasonography evaluation of the renal arteries were performed. Comparison is made to the aorta. Report prepared by JOAQUINA Noonan, RVT FINDINGS: AORTA: Patent. Peak systolic velocity 166 centimeters/second RIGHT RENAL ARTERY: Renal artery to aorta ratio: 1.5 * Proximal segment: Patent. Peak systolic velocity 249 centimeters/second * Mid segment: Patent. Peak systolic velocity 177 centimeters/second * Distal segment: Patent. Peak systolic velocity 155 centimeters/second Other findings: Right Kidney measures approximately 11.92 centimeters. LEFT RENAL ARTERY: Renal artery to aorta ratio: 1.2 * Proximal segment: Patent. Peak systolic velocity 199 centimeters/second * Mid segment: Patent. Peak systolic velocity 186 centimeters/second * Distal segment: Patent. Peak systolic velocity 154 centimeters/second Other findings: Left Kidney measures approximately 11.34 centimeters. IMPRESSION: RIGHT: Significantly increased velocities noted in right renal arteries. LEFT: Limited evaluation. No definite hemodynamically significant stenosis involving the renal arteries as visualized.
[2016-09-24 15:45] VITALS: BP 163/95; RESP 18; TEMP 98.2; O2SAT 98
[2016-09-24 16:23] VITALS: PULSE 82
--- NOTE | 2016-09-24 17:38 | CP.PCM.DIS ---
<Ruth Stein - Last Filed: 09/24/16 17:33> Provider - Provider Date of Admission: 09/23/16 20:28 Attending physician: Kal Brewer MD Primary care physician: [facility] Consults: Dr. Rice (obgyn) Dr. Blanca (cardiology) Time Spent in preparation of Discharge (in minutes): 45 Diagnosis - Discharge Diagnosis (1) Hypertensive emergency Status: Acute (2) Tinea corporis Status: Acute (3) Vulvar lesion Status: Chronic Priority: Medium Onset Date: Unknown Hospital Course - Lab Results Lab Results: Most Recent Lab Values WBC 9.1 K/uL (4.8-10.8) 09/24/16 06:36 RBC 4.53 Mil/uL (3.80-5.20) 09/24/16 06:36 Hgb 13.4 g/dL (11.0-16.0) 09/24/16 06:36 Hct 40.3 % (34.0-47.0) 09/24/16 06:36 MCV 88.9 fL (81.0-99.0) 09/24/16 06:36 MCH 29.6 pg (27.0-31.0) 09/24/16 06:36 MCHC 33.3 g/dL (33.0-37.0) 09/24/16 06:36 RDW 13.8 % (11.5-14.5) 09/24/16 06:36 Plt Count 202 K/uL (130-400) 09/24/16 06:36 MPV 9.2 fL (7.2-11.7) 09/24/16 06:36 Neut % (Auto) 62.0 % (50.0-75.0) 09/24/16 06:36 Lymph % (Auto) 31.2 % (20.0-40.0) 09/24/16 06:36 Addison % (Auto) 5.6 % (0.0-10.0) 09/24/16 06:36 Eos % (Auto) 0.7 % (0.0-4.0) 09/24/16 06:36 Baso % (Auto) 0.5 % (0.0-2.0) 09/24/16 06:36 Neut # 5.6 K/uL (1.8-7.0) 09/24/16 06:36 Lymph # 2.8 K/uL (1.0-4.3) 09/24/16 06:36 Addison # 0.5 K/uL (0.0-0.8) 09/24/16 06:36 Eos # 0.1 K/uL (0.0-0.7) 09/24/16 06:36 Baso # 0.0 K/uL (0.0-0.2) 09/24/16 06:36 APTT 33 SECONDS (21-34) 09/24/16 06:36 Sodium 141 mmol/L (132-148) 09/24/16 06:36 Potassium 3.6 mmol/L (3.6-5.2) 09/24/16 06:36 Chloride 99 mmol/L (98-107) 09/24/16 06:36 Carbon Dioxide 27 mmol/L (22-30) 09/24/16 06:36 Anion Gap 19 (10-20) 09/24/16 06:36 BUN 14 mg/dL (7-17) 09/24/16 06:36 Creatinine 0.8 MG/DL (0.7-1.2) 09/24/16 06:36 Est GFR ( Amer) > 60 09/24/16 06:36 Est GFR (Non-Af Amer) > 60 09/24/16 06:36 POC Glucose (mg/dL) 121 mg/dL (65-110) H 09/24/16 17:18 Random Glucose 90 mg/dL (65-105) 09/24/16 06:36 Hemoglobin A1c 6.4 % (4.2-6.5) 09/24/16 06:36 Calcium 9.1 mg/dl (8.6-10.4) 09/24/16 06:36 Phosphorus 5.1 mg/dL (2.5-4.5) H 09/24/16 06:36 Magnesium 2.2 mg/dL (1.6-2.3) 09/24/16 06:36 Total Bilirubin 0.3 mg/dL (0.2-1.3) 09/24/16 06:36 AST 39 U/L (14-36) H D 09/24/16 06:36 ALT 24 U/L (9-52) 09/24/16 06:36 Alkaline Phosphatase 81 U/L (38-126) 09/24/16 06:36 Total Protein 6.9 g/dL (6.3-8.3) 09/24/16 06:36 Albumin 4.0 g/dL (3.5-5.0) 09/24/16 06:36 Globulin 2.9 gm/dL (2.2-3.9) 09/24/16 06:36 Albumin/Globulin Ratio 1.4 (1.0-2.1) 09/24/16 06:36 Triglycerides 88 mg/dL (0-149) 09/24/16 06:36 Cholesterol 190 mg/dL (0-199) 09/24/16 06:36 LDL Cholesterol Direct 141 mg/dL (0-129) H 09/24/16 06:36 HDL Cholesterol 30 mg/dL (30-70) 09/24/16 06:36 Free T4 1.23 ng/dL (0.78-2.19) 09/24/16 06:36 TSH 3rd Generation 3.48 mIU/L (0.46-4.68) 09/24/16 06:36 Urine Color Yellow (YELLOW) 09/24/16 07:14 Urine Clarity Hazy (Clear) 09/24/16 07:14 Urine pH 5.0 (5.0-8.0) 09/24/16 07:14 Ur Specific [place] 1.016 (1.003-1.030) 09/24/16 07:14 Urine Protein Negative mg/dL (NEGATIVE) 09/24/16 07:14 Urine Glucose (UA) Normal mg/dL (Normal) 09/24/16 07:14 Urine Ketones Negative mg/dL (NEGATIVE) 09/24/16 07:14 Urine Blood Negative (NEGATIVE) 09/24/16 07:14 Urine Nitrate Positive (NEGATIVE) H 09/24/16 07:14 Urine Bilirubin Negative (NEGATIVE) 09/24/16 07:14 Urine Urobilinogen Normal mg/dL (0.2-1.0) 09/24/16 07:14 Ur Leukocyte Esterase 3+ Jessica/uL (Negative) H 09/24/16 07:14 Urine WBC (Auto) 19 /hpf (0-5) H 09/24/16 07:14 Urine RBC (Auto) 5 /hpf (0-3) H 09/24/16 07:14 Ur Squamous Epith Cells 9 /hpf (0-5) H 09/24/16 07:14 Urine Bacteria Few (<OCC) H 09/24/16 07:14 - Hospital Course Hospital Course: CC: I have a cyst near my vagina; HTN (asymptomatic) HPI: Patient is a 56 year old [place] woman with a past medical history of hypertension, labial cysts - who was sent to the ED from the [facility], due to asymptomatic elevated BP (198/98). Per conversation with daughter, home BP measurements are performed, and have been in the 200/100 range for several months. She was prescribed unknown BP medications in her home [place] of [place] , but could not afford them. She has not seen a doctor in over 1 year. Patient reports making todays clinic appointment to have a vaginal cyst examined. She first noted a cyst (abscess) 8 months ago. At the time she describes it as painful and non draining. A month and a half ago, the lesion became enlarged, expressing purulent/partially sanguinous exudate with applied pressure. The pain is typically 2/10, but is exacerbated by periods of prolonged sitting, rising to a 5/10. She has not taken anything for the pain. Patient also reports itching/dryness int he skin of inner thigh/groin area for the past 1 month, with a prior occurrence 2 years ago that self resolved. Similar unresolved itching/dryness is noted at the scalp over the past 2 years. Additional itching/dryness of the b/l palms, b/l soles and abdominal fold began and have persisted for the past 6 months. She has applied vaseline and rubbing alcohol to the affected areas for several weeks without relief. Patient denies f/c, dizziness, chest pain, SOB, abdominal pain, n/v, d/c, urinary symptoms, LE swelling, or any additional acute complaints. Patient admitted on 09/23/16 for hypertensive emergency. Patient's blood pressure in the ED was 230/99 [09/23] where she was administered labetalol, enalapril, HCTZ and BP was decreased to 196/98. Invoicing Specialist Dr. Blanca was consulted. BP currently is 163/95H. Goal of systolic blood pressure is 180, with goal reached. Plan is to follow up out patient, and to continually decrease BP over time to avoid ischemia. Noted studies: Lipid Panel [09/24]: TG 88, Cholesterol 190, LDL 141H, HDL 30. ECG [09/23] found sinus tachycardia. Echocardiogram [09/24] found murmur. Renal scan Nuclear Medicine [09/24] found right renal arteries to have significantly increased velocities and the left renal arteries had limited evaluation with findings of no significant stenosis. Carotid doppler [09/24] found that on the right side there is no significant stenosis of right extracranial carotid arteries, and the left mid ICA has 16-49% stenosis with minimal hemodynamic significance. Patient had positive urinalysis [09/23, 09/24] including nitrate, leukocyte esterase, WBC 19H, RBC 5H, urine bacteria. Treated and monitored with ciprofloxacin. Patient has possible tinea cruris at b/l palms, soles of feet, medial thighs near groin, abdominal fold, scalp and is being treated and monitored. Labia minora mass and vaginal discharge was monitored and ObGyn was consulted, Dr. Rice. ObGyn consult suspects labia minora mass to be a genital wart. Plan is to follow up out patient. Discharge Exam - Head Exam Head Exam: ATRAUMATIC, NORMAL INSPECTION - Eye Exam Eye Exam: EOMI, Normal appearance, PERRL - ENT Exam ENT Exam: Mucous Membranes Moist - Neck Exam Neck exam: Full Rom - Respiratory Exam Respiratory Exam: Clear to PA & Lateral, UNREMARKABLE - Cardiovascular Exam Cardiovascular Exam: REGULAR RHYTHM, RRR, Systolic Murmur - GI/Abdominal Exam GI & Abdominal Exam: Normal Bowel Sounds, Unremarkable - Exam Additional comments: Right vulvar lesion: [id number], non-erythematous, irregular in shape/border, no drainage noted - Extremities Exam Extremities exam: full ROM, normal inspection - Back Exam Back exam: NORMAL INSPECTION - Neurological Exam Neurological exam: Alert, Oriented x3 - Psychiatric Exam Psychiatric exam: Normal Affect, Normal Mood - Skin Additional comments: hands, feet, scalp, abdomen, groin with rash, scalloped borders, central palor Discharge Plan - Discharge Medications Prescriptions: Carvedilol [Coreg] 3.125 mg PO BID #30 tab Ciprofloxacin [Cipro] 500 mg PO DAILY #1 tab Clotrimazole 1% Cream [Lotrimin 1%] 60 gm TOP BID #1 Enalapril Maleate [Vasotec] 5 mg PO DAILY #15 tab Fluconazole [Diflucan] 200 mg PO Q7D #6 tab Rosuvastatin Calcium 2.5 [Crestor] 5 mg PO DAILY #15 tab - Follow Up Plan Condition: GUARDED Disposition: HOME/ ROUTINE Instructions: Ciprofloxacin (By mouth), Enalapril (By mouth), Fluconazole (By mouth), Carvedilol (By mouth), Rosuvastatin (By mouth), Heart Healthy Diet (DC) , Vulvovaginal Candidiasis (GEN), Hypertensive Crisis (DC), Hypertension (DC) Additional Instructions: Patient stable for discharge as per Dr. Munoz. Patient should make an appointment with the [facility] within one week. Patient will follow up with the clinic to continue decreasing her blood pressure. Patient will follow up with clinic to manage her vaginal wart as an outpatient. Patient to take the following medications: Carvedilol 3.125mg po twice a day Ciprofloxacin 500 mg one time Enalapril Maleate 5 mg po daily Fluconazole 200 mg once a week for 6 weeks Crestor 5 mg po daily Clotrimazole cream on rashes If symptoms resume or worsen please return to Emergency Department Immediately. Patient explained instructions who understands and agrees. Referrals: [facility] [Provider Group] <Ravi Munoz - Last Filed: 10/27/16 14:58> Provider - Provider Date of Admission: 09/23/16 20:28 Attending physician: Kal Brewer MD Hospital Course - Lab Results Lab Results: Micro Results 09/24/16 01:10 Urine,Catheterized Urine Culture - Final No Growth (<1,000 CFU/ML) Most Recent Lab Values WBC 9.1 K/uL (4.8-10.8) 09/24/16 06:36 RBC 4.53 Mil/uL (3.80-5.20) 09/24/16 06:36 Hgb 13.4 g/dL (11.0-16.0) 09/24/16 06:36 Hct 40.3 % (34.0-47.0) 09/24/16 06:36 MCV 88.9 fL (81.0-99.0) 09/24/16 06:36 MCH 29.6 pg (27.0-31.0) 09/24/16 06:36 MCHC 33.3 g/dL (33.0-37.0) 09/24/16 06:36 RDW 13.8 % (11.5-14.5) 09/24/16 06:36 Plt Count 202 K/uL (130-400) 09/24/16 06:36 MPV 9.2 fL (7.2-11.7) 09/24/16 06:36 Neut % (Auto) 62.0 % (50.0-75.0) 09/24/16 06:36 Lymph % (Auto) 31.2 % (20.0-40.0) 09/24/16 06:36 Addison % (Auto) 5.6 % (0.0-10.0) 09/24/16 06:36 Eos % (Auto) 0.7 % (0.0-4.0) 09/24/16 06:36 Baso % (Auto) 0.5 % (0.0-2.0) 09/24/16 06:36 Neut # 5.6 K/uL (1.8-7.0) 09/24/16 06:36 Lymph # 2.8 K/uL (1.0-4.3) 09/24/16 06:36 Addison # 0.5 K/uL (0.0-0.8) 09/24/16 06:36 Eos # 0.1 K/uL (0.0-0.7) 09/24/16 06:36 Baso # 0.0 K/uL (0.0-0.2) 09/24/16 06:36 APTT 33 SECONDS (21-34) 09/24/16 06:36 Sodium 141 mmol/L (132-148) 09/24/16 06:36 Potassium 3.6 mmol/L (3.6-5.2) 09/24/16 06:36 Chloride 99 mmol/L (98-107) 09/24/16 06:36 Carbon Dioxide 27 mmol/L (22-30) 09/24/16 06:36 Anion Gap 19 (10-20) 09/24/16 06:36 BUN 14 mg/dL (7-17) 09/24/16 06:36 Creatinine 0.8 MG/DL (0.7-1.2) 09/24/16 06:36 Est GFR ( Amer) > 60 09/24/16 06:36 Est GFR (Non-Af Amer) > 60 09/24/16 06:36 POC Glucose (mg/dL) 121 mg/dL (65-110) H 09/24/16 17:18 Random Glucose 90 mg/dL (65-105) 09/24/16 06:36 Hemoglobin A1c 6.4 % (4.2-6.5) 09/24/16 06:36 Calcium 9.1 mg/dl (8.6-10.4) 09/24/16 06:36 Phosphorus 5.1 mg/dL (2.5-4.5) H 09/24/16 06:36 Magnesium 2.2 mg/dL (1.6-2.3) 09/24/16 06:36 Total Bilirubin 0.3 mg/dL (0.2-1.3) 09/24/16 06:36 AST 39 U/L (14-36) H D 09/24/16 06:36 ALT 24 U/L (9-52) 09/24/16 06:36 Alkaline Phosphatase 81 U/L (38-126) 09/24/16 06:36 Total Protein 6.9 g/dL (6.3-8.3) 09/24/16 06:36 Albumin 4.0 g/dL (3.5-5.0) 09/24/16 06:36 Globulin 2.9 gm/dL (2.2-3.9) 09/24/16 06:36 Albumin/Globulin Ratio 1.4 (1.0-2.1) 09/24/16 06:36 Triglycerides 88 mg/dL (0-149) 09/24/16 06:36 Cholesterol 190 mg/dL (0-199) 09/24/16 06:36 LDL Cholesterol Direct 141 mg/dL (0-129) H 09/24/16 06:36 HDL Cholesterol 30 mg/dL (30-70) 09/24/16 06:36 Free T4 1.23 ng/dL (0.78-2.19) 09/24/16 06:36 TSH 3rd Generation 3.48 mIU/L (0.46-4.68) 09/24/16 06:36 Urine Color Yellow (YELLOW) 09/24/16 07:14 Urine Clarity Hazy (Clear) 09/24/16 07:14 Urine pH 5.0 (5.0-8.0) 09/24/16 07:14 Ur Specific [place] 1.016 (1.003-1.030) 09/24/16 07:14 Urine Protein Negative mg/dL (NEGATIVE) 09/24/16 07:14 Urine Glucose (UA) Normal mg/dL (Normal) 09/24/16 07:14 Urine Ketones Negative mg/dL (NEGATIVE) 09/24/16 07:14 Urine Blood Negative (NEGATIVE) 09/24/16 07:14 Urine Nitrate Positive (NEGATIVE) H 09/24/16 07:14 Urine Bilirubin Negative (NEGATIVE) 09/24/16 07:14 Urine Urobilinogen Normal mg/dL (0.2-1.0) 09/24/16 07:14 Ur Leukocyte Esterase 3+ Jessica/uL (Negative) H 09/24/16 07:14 Urine WBC (Auto) 19 /hpf (0-5) H 09/24/16 07:14 Urine RBC (Auto) 5 /hpf (0-3) H 09/24/16 07:14 Ur Squamous Epith Cells 9 /hpf (0-5) H 09/24/16 07:14 Urine Bacteria Few (<OCC) H 09/24/16 07:14 Attending/Attestation - Attestation I have personally seen and examined this patient.: Yes I have fully participated in the care of the patient.: Yes I have reviewed all pertinent clinical information, including history, physical exam and plan: Yes Notes (Text): Patient admitted on 09/23/16 for hypertensive emergency. Patient's blood pressure in the ED was 230/99 [09/23] where she was administered labetalol, enalapril, HCTZ and BP was decreased to 196/98. Invoicing Specialist Dr. Blanca was consulted. BP currently is 163/95H. Goal of systolic blood pressure is 180, with goal reached. Plan is to follow up out patient, and to continually decrease BP over time to avoid ischemia. Patient had positive urinalysis [09/23, 09/24] including nitrate, leukocyte esterase, WBC 19H, RBC 5H, urine bacteria. Treated and monitored with ciprofloxacin. Patient has possible tinea cruris at b/l palms, soles of feet, medial thighs near groin, abdominal fold, scalp and is being treated and monitored. Labia minora mass and vaginal discharge was monitored and ObGyn was consulted, Dr. Rice. ObGyn consult suspects labia minora mass to be a genital wart. Plan is to follow up out patient.
--- NOTE | 2016-09-25 07:39 | CARD ---
APPROVED REPORT EXAM: Two-dimensional and M-mode echocardiogram with Doppler and color Doppler. Other Information Quality : GoodRhythm : NSR INDICATION Murmur HYPERTENSIVE URGENCY RISK FACTORS Hypertension M-Mode DIMENSIONS Left Atrium (MM)2.73 (2.5-4.0cm)Aortic Root3.54 (2.2-3.7cm) Aortic Cusp Exc.1.51 (1.5-2.0cm) Aortic Valve AoV Peak Xonlqhge528.2cm/Adriana Peak GR.12mmHg Mitral Valve MV E Tbpinokj13.9cm/sMV A Ywoicovj589.5cm/sE/A ratio0.6 TDI E/Lateral E'0.0E/Medial E'0.0 Tricuspid Valve TR Peak Pgigngkz897sn/sTR Peak Gr.21biJaRFLS45veYn LEFT VENTRICLE The left ventricle is normal size. There is normal left ventricular wall thickness. The Ejection Fraction is >55%. No regional wall motion abnormalities noted. The left ventricular diastolic function is normal. No left ventricle thrombus noted on this study. There is no ventricular septal defect visualized. There is no left ventricular aneurysm. There is no mass noted in the left ventricle. RIGHT VENTRICLE The right ventricle is normal size. There is normal right ventricular wall thickness. The right ventricular systolic function is normal. ATRIA The left atrium size is normal. The right atrium size is normal. The interatrial septum is intact with no evidence for an atrial septal defect. AORTIC VALVE The aortic valve is normal in structure and function. No aortic regurgitation is present. There is no aortic valvular stenosis. There is no aortic valvular vegetation. MITRAL VALVE The mitral valve is normal in structure and function. There is no evidence of mitral valve prolapse. There is no mitral valve stenosis. There is no mitral valve regurgitation noted. TRICUSPID VALVE The tricuspid valve is normal in structure and function. There is trace tricuspid regurgitation. There is no tricuspid valve prolapse or vegetation. There is no tricuspid valve stenosis. PULMONIC VALVE The pulmonary valve is normal in structure and function. There is no pulmonic valvular regurgitation. There is no pulmonic valvular stenosis. GREAT VESSELS The aortic root is normal in size. The ascending aorta is normal in size. The pulmonary artery is normal. The IVC is normal in size and collapses >50% with inspiration. PERICARDIAL EFFUSION There is no pericardial effusion. There is no pleural effusion. <Conclusion> The Ejection Fraction is >55%. There is trace tricuspid regurgitation. There is no pericardial effusion. limited study
[2016-09-25] MEDS ORDERED: Pneumococcal 23-Valent Vaccine IM ONE (10:00)
--- NOTE | 2016-09-26 06:49 | CARD ---
APPROVED REPORT EKG Measurement Heart [id number] <Conclusion> Sinus tachycardia Otherwise normal ECG
== END 2016-09-24 18:30 | disposition home or self-care (01) ==
LOC: C.ER 14:40 → C.6T 20:28
PROVIDERS: ADMIT Internal Medicine; ATTEND Internal Medicine
DX: I16.0 Hypertensive urgency (principal); F41.9 Anxiety disorder, unspecified; B35.4 Tinea corporis; Z87.891 Personal history of nicotine dependence; N89.8 Other specified noninflammatory disorders of vagina
CPT/HCPCS: 36415; 80053; 80061; 81001; 82948; 83036; 83735; 84100; 84439; 84443; 85025; 85730; 87086; 93306; 93880; 93975; 99285; G0378; J1644

== ENCOUNTER 2016-10-29 14:01 | Emergency (ER) | payer OTHER ==
[2016-10-29 14:21] VITALS: BP 223/101; RESP 18; TEMP 98.4; O2SAT 99; BMI 34.8
--- NOTE | 2016-10-29 14:36 | C.PDOC ---
History Of Present Illness 56 year old female, with a history of a hypertension, presents to the ED for evaluation of high blood pressure. Patient was in the clinic for routine follow -up and was sent to ED for asymptomatic htn. She reports that she ran out of her BP medications 8 days ago. Denies somatic complaints. She denies chest pain, abdominal pain, headache, or dizziness. Time Seen by Provider: 10/29/16 14:17 Chief Complaint (Nursing): High Blood Pressure History Per: Patient History/Exam Limitations: no limitations Quality Of Symptoms: Asymptomatic Exacerbating Factor(s): Pos: None Recent travel outside of the [place]: No Past Medical History Reviewed: Historical Data, Nursing Documentation, Vital Signs Vital Signs: Last Vital Signs Temp 98.4 F 10/29/16 14:20 Pulse 80 10/29/16 14:40 Resp 18 10/29/16 14:20 BP 223/101 H 10/29/16 14:45 Pulse Ox 99 10/29/16 15:08 - Medical History PMH: HTN, Hypercholesterolemia Surgical History: Family History: States: Unknown Family Hx - Social History Hx Tobacco Use: No Hx Alcohol Use: No Hx Substance Use: No - Immunization History Hx Tetanus Toxoid Vaccination: No Hx Influenza Vaccination: No Hx Pneumococcal Vaccination: No Review Of Systems Constitutional: Negative for: Fever, Chills, Weakness Cardiovascular: Negative for: Chest Pain, Palpitations Respiratory: Negative for: Cough, Shortness of Breath, SOB with Excertion, Wheezing Gastrointestinal: Negative for: Nausea, Vomiting, Abdominal Pain, Diarrhea, Constipation Genitourinary: Negative for: Dysuria Neurological: Negative for: Weakness, Numbness, Headache Physical Exam - Physical Exam Appears: Well, Non-toxic, No Acute Distress Skin: Warm, Dry Head: Atraumatic, Normacephalic Eye(s): bilateral: Normal Inspection, PERRL, EOMI Oral Mucosa: Moist Neck: Supple Chest: Symmetrical, No Deformity Cardiovascular: Rhythm Regular, No Murmur Respiratory: Normal Breath Sounds, No Rales, No Rhonchi, No Wheezing Gastrointestinal/Abdominal: Soft, No Tenderness, No Distention, No Guarding, No Rebound Back: Normal Inspection, No CVA Tenderness Extremity: Normal ROM, No Tenderness Neurological/Psych: Oriented x3, Normal Speech, Normal Cognition, Normal Motor Gait: Steady ED Course And Treatment O2 Sat by Pulse Oximetry: 99 (room air ) Medical Decision Making Medical Decision Making: Patient was given home BP medication and given refills. Patient remains asymptomatic and sent back to clinic for regularly scheduled follow up appointment. Disposition - Disposition Disposition: HOME/ ROUTINE Disposition Time: 14:33 Condition: FAIR Additional Instructions: Go directly to your clinic appt. Return to ED if condition worsens. Take blood pressure and cholesterol medication as prescribed. Prescriptions: Carvedilol [Coreg] 3.125 mg PO BID #60 tab Enalapril Maleate 5 mg PO DAILY #30 tablet Rosuvastatin Calcium 5 mg PO DAILY #30 tablet Instructions: Hypertension (ED) Forms: [employer] ([place]) - Clinical Impression Clinical Impression: Asymptomatic hypertension - Scribe Statement The provider has reviewed the documentation as recorded by the Scribe Adia Camilo All medical record entries made by the Scribe were at my direction and personally dictated by me. I have reviewed the chart and agree that the record accurately reflects my personal performance of the history, physical exam, medical decision making, and the department course for this patient. I have also personally directed, reviewed, and agree with the discharge instructions and disposition.
[2016-10-29 14:53] VITALS: PULSE 80
== END 2016-10-29 14:53 | disposition home or self-care (01) ==
LOC: C.ER 14:01
DX: I10 Essential (primary) hypertension (principal)